=== PATIENT | male | born 1965 | race Caucasian/White ===

== ENCOUNTER 2016-11-09 13:17 | Emergency (ER) | payer OTHER ==
[~2016-11-09] VITALS: Ht 170.2 cm; Wt 66.5 kg
[~2016-11-09 13:17] MED LIST: CHOL100062 PO; DOCU-159 PO; ERGO500014 PO
[2016-11-09 13:46] VITALS: Ht 170.2 cm; Wt 66.5 kg
[2016-11-09] MEDS ORDERED: ONDANSETRON (ODT) 4 MG TAB ODT STA (16:17)
[2016-11-09] MEDS ORDERED: ONDA4TAB14 PO (16:21)
[2016-11-09] MEDS ORDERED: MECL-77 PO (16:21)
--- NOTE | 2016-11-09 16:25 | ERD ---
ER Documentation Chief Complaint Date/Time DATE: 11/09/16 TIME: 16:22 Chief Complaint Pt with dizzyness, vomiting and cold chills since 0600. HPI Patient is a 51-year-old Albanian-speaking male and transition was done via his . Today he had nausea and vomiting. As he got up from the bed at 6 morning he felt vertigo the room was spinning. He has some mild chills no myalgias. After the vertigo he had the nausea and vomiting. Nonbloody vomiting. He did have a cough last week which has resolved. His sore throat has improved. Denies any focal weakness no past medical history no allergies no medications. No chest pain no other complaints. ROS All systems reviewed and are negative except as per history of present illness. Medications Home Meds Active Scripts Ondansetron (Ondansetron Odt) 4 Mg Tab.rapdis, 4 MG PO Q6H Y for NAUSEA AND/OR VOMITING, #4 TAB Prov:EDWIN REESE DO 11/09/16 Meclizine Hcl* (Meclizine Hcl*) 25 Mg Tablet, 25 MG PO Q8H Y for DIZZINESS, #20 TAB Prov:EDWIN REESE DO 11/09/16 Reported Medications Docusate Sodium* (Docusate Sodium*) 100 Mg Capsule, 100 MG PO BID, #60 CAP 07/19/16 Ergocalciferol* (Drisdol* (Vitamin D2)) 50,000 Unit Capsule, 16184 UNIT PO Q7D, CAP 07/19/16 Cholecalciferol* (Vitamin D3*) 1,000 Unit Tablet, 1000 UNIT PO DAILY, TAB 07/19/16 Allergies Allergies: Coded Allergies: No Known Drug Allergies (Verified Allergy, Mild, 07/19/16) PMhx/Soc History of Surgery: No Anesthesia Reaction: No Hx Neurological Disorder: No Hx Respiratory Disorders: No Hx Cardiac Disorders: No Hx Miscellaneous Medical Probl: No Hx Alcohol Use: No Hx Substance Use: No Hx Tobacco Use: No Physical Exam Vitals Vital Signs Date Time Temp Pulse Resp B/P Pulse Ox O2 Delivery O2 Flow Rate FiO2 11/09/16 13:46 98.0 73 18 125/69 98 Physical Exam Const: [Alert oriented 4, well-nourished well-developed nontoxic- appearing no apparent distress, interacts appropriately] Head: [Normocephalic/atraumatic, no scalp lesions] Eyes: [Normal Conjunctiva, PERRLA, EOMI no conjunctival injection no conjunctival discharge] ENT: [Normal External Ears, Nose and Mouth, no tonsillar exudates no tonsillar erythema no tonsillar edema oropharynx no erythema. bilateral ear canals are patent, bilateral tympanic membranes nonerythematous.] Neck: [Full range of motion. No meningismus. No cervical lymphadenopathy] Resp: [Clear to auscultation bilaterally, no wheezes rhonchi or rales, breathing normally, no tachypnea no nasal flaring no grunting no accessory muscle use no retractions] Cardio: [Regular rate and rhythm, no murmurs] Abd: [Soft, non tender, non distended. Normal bowel sounds, no rebound rigidity or guarding. Normoactive bowel sounds no flank tenderness, negative McBurney's negative Tavares sign.] Skin: [No petechiae or rashes, no hives no urticaria no abscess no laceration no new warmth] Back: [No midline or flank tenderness, full range of motion without pain ] Ext: [No cyanosis, clubbing or edema] Neuro: M/S: Alert and oriented 4. [place] left and right is negative but with sitting up produces dizziness and vertigo. Face: EOMI, face and pharynx with normal sensation and function Motor: Normal strength throughout, muscle strength is 5 out of 5 bilateral upper extremity and bilateral lower extremity Sensation: Normal sensation throughout Speech: Normal Cerebel: Normal coordination Normal gait DTR: 2+ and symmetric upper/lower extremities Psych: [Normal Mood and Affect, no suicidal ideation or homicide ideation] Results 24 hrs Current Medications Medications (Trade) Dose Ordered Sig/Amy Route PRN Reason Start Time Stop Time Status Last Admin Dose Admin Meclizine HCl (Antivert) 25 mg ONCE ONCE PO 11/09/16 16:30 11/09/16 16:31 Ondansetron HCl (Zofran Odt) 4 mg ONCE STAT ODT 11/09/16 16:17 11/09/16 16:18 DC Procedures/MDM This is likely a peripheral vertigo as he does have inducible vertigo when he sits up quickly and so this is likely benign positional vertigo. He did have acute URI last week which has subsequently resolved and so the timing of BPV is Cipro. 1 week after the URI. He has no focal weakness so I doubt TIA or stroke. His vital signs are stable he has no fever so I doubt meningitis or encephalitis and has no meningismus. His lung exam and heart exam is normal so I doubt pneumonia or acute coronary syndrome or pneumonitis or palpitations or arrhythmias. He has no fever so I doubt influenza. We treated him with meclizine and Zofran here and will give meclizine for home. Less likely to be a central vertigo. Differential also includes labyrinthitis or acoustic neuroma or multiple sclerosis or eustachian tube dysfunction or middle ear effusion. He has some left middle ear effusion but there is no erythema so I do not think he requires antibiotics at this point. He stable for discharge and follow-up Departure Diagnosis: Primary Impression: Dizziness Additional Impression: Nausea and vomiting in adult patient Condition: Stable Patient Instructions: Inner Ear Problems: Causes of Dizziness (Vertigo), Dizziness (Vertigo) and Balance Problems: Ensuring Your Safety, Benign Positional Vertigo Referrals: [facility] MD (PCP) EDWIN REESE DO Nov 09, 2016 16:25
[2016-11-09] MEDS ORDERED: MECLIZINE 12.5 MG TAB PO ONE (16:30)
== END 2016-11-09 16:40 | disposition home or self-care (01) ==
LOC: FTE 13:17
DX: R42 Dizziness and giddiness (principal); R11.2 Nausea with vomiting, unspecified
CPT/HCPCS: Z7610 ×2; 99283